=== PATIENT | female | born 1970 | race Native Hawaiian/Other Pacific Islander ===

== ENCOUNTER → 2016-08-09 | Outpatient (CLI) | payer BC ==
--- NOTE | 2016-08-09 17:44 | MR ---
EXAMINATION TYPE: MR lumbar spine wo/w con DATE OF EXAM: 08/09/2016 5:24 PM COMPARISON: 04/14/2013 HISTORY: Pain in low back since 1998,Lumbago With Sciatica TECHNIQUE: T1 and T2 axial and sagittal images of the lumbar spine are submitted. FINDINGS: There is no abnormal signal seen within the visualized spinal cord or paraspinal soft tissu es. L1-L2- Normal disc appearance without desiccation. No herniation, protrusion or disc bulging. No el l stenosis is present. Foramina are patent bilaterally. L2-L3- Mild decreased signal and loss of height is compatible with degenerative disc disease. Mild po sterior disc bulging. No herniation protrusion or canal stenosis. Visualized foramina appear to be pa tent. Mild facet arthropathy. L3-L4- Mild decreased signal and loss of height is compatible with degenerative disc disease. Mild po sterior disc bulging. No herniation protrusion or canal stenosis. Visualized foramina appear to be pa tent. Mild facet arthropathy. L4-L5- Normal disc appearance without desiccation. No herniation, protrusion or disc bulging. No el l stenosis is present. Foramina are patent bilaterally. Moderate facet arthropathy. L5-S1- Severe decreased signal and loss of height compatible with degenerative disc disease. Postoper ative changes noted at this level. There is enhancing granulation tissue. No evidence for recurrent o r residual disc disease. No definite disc herniation. Diminished T1-weighted bone marrow signal May reflect bone marrow reconversion. Correlate with CBC. L umbar segments are intact. No paraspinal masses are identified. Conus medullaris has a normal appeara nce. No pathologic enhancement. Stable left adrenal lesion unchanged from the previous exam. Lipomato us phylum terminale appear stable IMPRESSION- 1. Enhancing granulation tissue at L5-S1 without evidence for recurrent or residual disc herniation o r protrusion appears stable and may result in mild mass effect upon the right nerve root. 2. Disc bulging at L2-L3 and L3-L4. There is mild progression of degenerative disc disease at these 2 levels. 3. Multilevel facet arthropathy with the most marked changes at L4-L5.
== END | disposition home or self-care (01) ==
LOC: RADMRIMAIN 16:36
PROVIDERS: ATTEND Physician Assistant Medical
DX: M51.26 Other intervertebral disc displacement, lumbar region (principal); M51.36 Other intervertebral disc degeneration, lumbar region; M46.96 Unspecified inflammatory spondylopathy, lumbar region
CPT/HCPCS: 72158; A9577

== ENCOUNTER → 2019-04-19 | Outpatient (CLI) | payer BC ==
[2019-04-19 09:33] LABS: Basophils # (A) 0.1 k/uL (0-0.2); Basophils % (A) 1 %; Eosinophils # (A) 0.1 k/uL (0-0.7); Eosinophils % (A) 1 %; HGB 13.1 gm/dL (11.4-16.0); Lymphocytes # (A) 2.3 k/uL (1.0-4.8); Lymphocytes % (A) 31 %; MCH 31.2 pg (25.0-35.0); MCHC 32.8 g/dL (31.0-37.0); MCV 95.1 fL (80.0-100.0); Mean Platelet Volume 5.6; Monocytes # (A) 0.4 k/uL (0-1.0); Monocytes % (A) 5 %; Neutrophils # (A) 4.5 k/uL (1.3-7.7); Neutrophils % (A) 61 %; Platelet Count 341 k/uL (150-450); WBC 7.4 k/uL (3.8-10.6)
== END | disposition home or self-care (01) ==
LOC: LABPAT 09:00
PROVIDERS: ATTEND Obstetrics & Gynecology
DX: Z01.812 Encounter for preprocedural laboratory examination (principal)
CPT/HCPCS: 36415; 85025

== ENCOUNTER → 2019-04-22 | Day surgery (SDC) | payer BC ==
--- NOTE | 2019-04-21 20:31 | P.HPOB ---
History of Present Illness H&P Date: 04/21/19 Chief Complaint: Menorrhagia with irregular cycle This is a 48 y.o. female, 4, para 2, who presents for dilatation and curettage with hysteroscopy and Novasure endometrial ablation due to menorrhagia with irregular cycle. She has been complaining of intermittent pelvic pain for the last couple months. The pain is crampy and mostly in the left lower quadrant and suprapubic area. She had no period for about 2 months. Her pelvic ultrasound showed uterus measuring 8.2 x 6.5 x 4.7 cm, retroverted, with endometrium of 15 mm and a highly vascular area measuring 2.4 x 0.8 cm., possible endometrial polyp. Her ovaries were normal. She has had a previous tubal ligation. OB Hx: . History of 2 vaginal deliveries. History of 2 terminations. 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 History of tubal ligation. Social Hx: . Office work. Review of Systems Constitutional: Denies chills, Denies fever Ears, nose, mouth and throat: Denies sore throat Cardiovascular: Denies chest pain, Denies shortness of breath Respiratory: Denies cough Gastrointestinal: Reports heartburn, Denies abdominal pain, Denies diarrhea, Denies nausea, Denies vomiting Genitourinary: Reports dysmenorrhea, Reports menorrhagia, Reports pelvic pain Menstruation: Reports cycle variable Musculoskeletal: Reports low back pain Integumentary: Denies pruritus, Denies rash Neurological: Denies numbness, Denies weakness Past Medical History Past Medical History: GERD/Reflux Additional Past Medical History / Comment(s): CURRENT: MENSTRUAL BLEEDING AND CRAMPINGchronic back pain LOWER BACK History of Any Multi-Drug Resistant Organisms: None Reported Past Surgical History: Back Surgery, Hernia Repair, Orthopedic Surgery, Tubal Ligation Additional Past Surgical History / Comment(s): LUMBAR BACK OR. DOUBLE HERNIA WHEN A CHILD. RIGHT ANKLE REMOVAL OF BONE CHIP. D&C Past Anesthesia/Blood Transfusion Reactions: Postoperative Nausea & Vomiting (PONV) Past Psychological History: No Psychological Hx Reported Smoking Status: Current every day smoker Past Alcohol Use History: Occasional Additional Past Alcohol Use History / Comment(s): SMOKED FOR ABOUT COUPLE OF YEARS, 1-2 CIGS A NIGHT. Past Drug Use History: None Reported - Past Family History Sister(s) Family Medical History: Cancer, Deep Vein Thrombosis (DVT) Medications and Allergies Home Medications Medication Instructions Recorded Confirmed Type Ibuprofen [Motrin] 800 mg PO BID 12/06/15 04/18/19 History Cyclobenzaprine [Flexeril] 10 mg PO HS 04/18/19 04/18/19 History Omeprazole [PriLOSEC] 10 mg PO HS PRN 04/18/19 04/18/19 History Allergies Allergy/AdvReac Type Severity Reaction Status Date / Time No Known Allergies Allergy Verified 04/18/19 10:38 Exam Osteopathic Statement: *. No significant issues noted on an osteopathic structural exam other than those noted in the History and Physical/Consult. HEENT: within normal limits Heart: regular rate and rhythm Lungs: clear to auscultation bilaterally Abdomen: soft, non-tender Pelvic exam: uterus mid-position, mildly tender, with bilateral mild adnexal tenderness. No masses palpated. Extremities: within normal limits. Assessment and Plan (1) Menorrhagia with irregular cycle Status: Acute Code(s): N92.1 - EXCESSIVE AND FREQUENT MENSTRUATION WITH IRREGULAR CYCLE SNOMED Code(s): 803229038 Plan: Proceed with dilatation and curettage with hysteroscopy and Novasure endometrial ablation. I have discussed the risks, benefits, and alternative therapies for the above- mentioned procedure and for both sedation/anesthesia as well as necessary blood products administration, if indicated, as they pertain to this patient. The patient has indicated her understanding and acceptance of the risks and procedures discussed.
[~2019-04-22] MED LIST: DEXAMETHASONE SOD PHOSPHATE 10 MG/ML 1 ML VIAL IV ONE; HYDROmorphone 0.5 MG/0.5 ML SYRINGE IVP PRN; KETAMINE 10 MG/ML 20 ML VIAL ONE; LACTATED RINGERS 1,000 ML IV SCH; LIDOCAINE 1% 20 ML VIAL (10MG/ML) FOR IV START INTRADERMA PRN; LIDOCAINE 1% INJ 10MG/ML (20 ML MDV) ONE; MIDAZOLAM 2 MG/2 ML VIAL ONE; ONDANSETRON 4 MG/2 ML VIAL IVP ONE; PROPOFOL 10 MG/ML 20 ML VIAL IV ONE; Pre Op ABX Message 1 EACH MISC MISCELLANE ONE; SCOPOLAMINE 1.5MG/72HR PATCH TRANSDERM ONE; fentaNYL (PF) 50 MCG/ML 2 ML AMP ONE
--- NOTE | 2019-04-22 09:54 | P.OP ---
Date of Procedure: 04/22/19 Preoperative Diagnosis: Menorrhagia with irregular cycle Postoperative Diagnosis: Same Procedure(s) Performed: Dilation and curettage with hysteroscopy and NovaSure endometrial ablation Anesthesia: other (LMA general) Surgeon: Lazara Banerjee Estimated Blood Loss (ml): 5 Pathology: other (Endometrial curettings) Condition: stable Disposition: same day Indications for Procedure: This is a 48 y.o. female, 4, para 2, who presents for dilatation and curettage with hysteroscopy and Novasure endometrial ablation due to menorrhagia with irregular cycle. She has been complaining of intermittent pelvic pain for the last couple months. The pain is crampy and mostly in the left lower quadrant and suprapubic area. She had no period for about 2 months. Her pelvic ultrasound showed uterus measuring 8.2 x 6.5 x 4.7 cm, retroverted, with endometrium of 15 mm and a highly vascular area measuring 2.4 x 0.8 cm., possible endometrial polyp. Her ovaries were normal. She has had a previous tubal ligation. Operative Findings: Uterus is retroverted and sounded to 9-1/2 cm. Cervix is sounded to 3 cm. Upon hysteroscopy at least 2 large polyps are visualized. Neither tubal ostia is completely visualized. A large amount of endometrial curettings are obtained. Description of Procedure: The patient is taken to the operating room. She is placed in the dorsal lithotomy position after general anesthesia was given. She is prepped and draped in the normal sterile fashion. Bladder is drained with a catheter and then removed. Pelvic exam is performed under anesthesia. Uterus is found to be retroverted with no adnexal masses. She is placed in slight Trendelenburg position. A right angle retractor is used to visualize the cervix. The anterior lip of the cervix is grasped with a single-tooth tenaculum. Cervix is sounded to 3 cm. Uterus is sounded to 9.5 cm. Cervix is gently dilated with [place]lejo dilators until a hysteroscope could be passed. Hysteroscopy is performed using normal saline. The above noted findings are noted. Next a polyp forceps is introduced. A large amount of polypoid tissue was obtained. Next medium- sized size sharp curette was placed. A large amount of endometrial curettings were obtained. Next NovaSure array was inserted into the endometrial cavity. Length was set at 6.5 cm and width was determined to be 4.3 cm. Next cavity assessment was completed and passed on the first try. Next NovaSure array was fired at 154 W for 48 seconds. Next the array was removed, inspected and then discarded. Next the hysteroscope was reinserted. Uniform charring was noted. Pictures were taken. Hysteroscope was removed. Single-tooth tenaculum was removed from the anterior lip of the cervix. Minimal bleeding was noted. All other instruments removed from the vagina. Sponge counts were correct. Patient is taken to recovery room in stable condition.
[2019-04-22 10:13] VITALS: TEMP 97.4
[2019-04-22 11:50] VITALS: BP 142/81; PULSE 82; RESP 18
== END | disposition home or self-care (01) ==
LOC: OR 07:55
PROVIDERS: ATTEND Obstetrics & Gynecology
DX: N92.1 Excessive and frequent menstruation with irregular cycle (principal); N84.0 Polyp of corpus uteri; G89.29 Other chronic pain; M54.5 Low back pain; F17.210 Nicotine dependence, cigarettes, uncomplicated; K21.9 Gastro-esophageal reflux disease without esophagitis; E66.01 Morbid (severe) obesity due to excess calories; Z98.51 Tubal ligation status; Z79.1 Long term (current) use of non-steroidal anti-inflammatories (NSAID); Z79.899 Other long term (current) drug therapy; Z68.38 Body mass index [BMI] 38.0-38.9, adult; Z98.890 Other specified postprocedural states; Z82.49 Family history of ischemic heart disease and other diseases of the circulatory system
CPT/HCPCS: 81025; 88305; 58563; J2250; J1100; J2405; J2001; J3010; J2704; J1170

== ENCOUNTER → 2019-06-23 | Outpatient (CLI) | payer BC ==
--- NOTE | 2019-06-23 09:51 | MM ---
Reason for exam: additional evaluation requested from abnormal screening. Last mammogram was performed 1 month ago. History: Family history of breast cancer in maternal aunt at age 85. Physical Findings: Nurse did not find any significant physical abnormalities on exam. MG Work Up Mamm w CAD RT Spot compression CC, spot compression MLO, and LM view(s) were taken of the right breast. Prior study comparison: June 07, 2019, bilateral MG screening mammo w CAD. January 24, 2016, bilateral MG screening mammo w CAD. The breast tissue is heterogeneously dense. This may lower the sensitivity of mammography. The previously seen abnormality resolves on additional views and appears as fibroglandular tissue compatible with summation. These results were verbally communicated with the patient and result sheet given to the patient on 06/23/19. ASSESSMENT: Negative, BI-RAD 1 RECOMMENDATION: Return to routine screening mammogram schedule for both breasts.
== END | disposition home or self-care (01) ==
LOC: RADMAMWWP 08:58
PROVIDERS: ATTEND Obstetrics & Gynecology
DX: R92.8 Other abnormal and inconclusive findings on diagnostic imaging of breast (principal)
CPT/HCPCS: 77065

== ENCOUNTER → 2020-08-27 | Outpatient (CLI) | payer BC ==
--- NOTE | 2020-08-27 17:59 | XR ---
EXAMINATION TYPE: XR knee complete LT DATE OF EXAM: 08/27/2020 COMPARISON: NONE HISTORY: Knee pain TECHNIQUE: 3 views FINDINGS: There is some mild spurring of the medial femoral and tibial condyles. I see no fracture no r dislocation. There is no sign of joint effusion. IMPRESSION: Mild osteoarthritis. No fracture seen. No significant joint space narrowing.
== END | disposition home or self-care (01) ==
LOC: RADXRMAIN 17:25
PROVIDERS: ATTEND Physician Assistant Medical
DX: M17.12 Unilateral primary osteoarthritis, left knee (principal)

== ENCOUNTER → 2022-09-16 | Outpatient (CLI) | payer BC ==
--- NOTE | 2022-09-16 08:08 | CTL ---
EXAMINATION TYPE: CT Low Dose Lung DATE OF EXAM ORDERED: 09/16/2022 COMPARISON: None HISTORY: . Low Dose CT Lung Screening CT DLP: 67.[address] CTDI: 2.4 mGy IV CONTRAST USED: None. SCREENING VISIT: First visit COMPARISON: None. TECHNIQUE: Low dose computed tomography scan was performed through the chest at 1 millimeter thick se ctions and reconstructed images in the coronal plane at [address] DIAGNOSTIC QUALITY: Satisfactory FINDINGS: LUNG NODULES: Not presentLeft lung: no nodules identified.Right lung: no nodules identified. LUNGS: COPD: Severity: None Fibrosis: Severity:None Lymph nodes: None Other findings: None RIGHT PLEURAL SPACE: Effusion: None Calcification: None Thickening: None Pneumothorax: None LEFT PLEURAL SPACE: Effusion: None Calcification: None Thickening: None Pneumothorax: None HEART: Heart Size: Mildly enlarged Coronary calcification: Mild Pericardial effusion: None OTHER FINDINGS: Upper abdomen: No significant abnormality Bony thorax: Degenerative changes Supraclavicular region: No significant abnormalityOther: No significant abnormalityI IMPRESSION: Benign FOLLOW UP CT CHEST RECOMMENDATION: Follow-up screening in one year CT LUNG RAD: LUNG RAD CATEGORY 1 negative
== END | disposition home or self-care (01) ==
LOC: RADCTMAIN 07:41
PROVIDERS: ATTEND Family Medicine
DX: Z12.2 Encounter for screening for malignant neoplasm of respiratory organs (principal); F17.210 Nicotine dependence, cigarettes, uncomplicated
CPT/HCPCS: 71271

== ENCOUNTER → 2023-12-21 | Outpatient (CLI) | payer BC ==
--- NOTE | 2023-12-21 09:57 | MM ---
Reason for Exam: Screening (asymptomatic). Last mammogram was performed 4 year(s) and 6 month(s) ago. Patient History: Menarche at age 14. First Full-Term at age 24. Maternal aunt had breast cancer, age 85. Risk Values: Emi 5 year model risk: 0.7%. NCI Lifetime model risk: 5.5%. Prior Study Comparison: 01/24/2016 Bilateral Screening Mammogram, [facility]. 06/07/2019 Bilateral Screening Mammogram, [facility]. 06/23/2019 Right Diagnostic Mammogram, [facility]. Tissue Density: The breasts are heterogeneously dense, which may obscure small masses. Findings: Analyzed By CAD. There is no suspicious group of microcalcifications or new suspicious mass in either breast. Overall Assessment: Negative, BI-RAD 1 Management: Screening Mammogram of both breasts in 1 year. . Patient should continue monthly self-breast exams. A clinical breast exam by your physician is recommended on an annual basis. This exam should not preclude additional follow-up of suspicious palpable abnormalities. Note on Emi scores and lifetime risk: 1. A Emi score greater than 3% is considered moderate risk. If this is the case, consider specialist referral to assess eligibility for a risk reducing agent. 2. If overall lifetime risk for the development of breast cancer is 20% or higher, the patient may qualify for future screening with alternating mammogram and breast MRI. Electronically signed and approved by: Marko Toledo M.D. Radiologis
== END | disposition home or self-care (01) ==
LOC: RADMAMWWP 06:56
PROVIDERS: ATTEND Family Medicine
DX: Z12.31 Encounter for screening mammogram for malignant neoplasm of breast (principal); R92.333 Mammographic heterogeneous density, bilateral breasts; Z80.3 Family history of malignant neoplasm of breast
CPT/HCPCS: 77067